=== PATIENT | female | born 1990 | race African-American/Black ===

== ENCOUNTER 2020-07-12 15:15 | Emergency (ER) | payer OTHER, MEDICAID ==
[~2020-07-12] VITALS: Ht 167.6 cm; Wt 77.3 kg
[~2020-07-12 15:15] MED LIST: NOCURR
[2020-07-12] MEDS ORDERED: HYDR-4031 PO (15:38)
[2020-07-12] MEDS ORDERED: MIRT-89 PO (15:38)
[2020-07-12 18:59] VITALS: BP 135/85
== END 2020-07-12 19:00 | disposition home or self-care (01) ==
LOC: EMS 15:20
DX: M25.531 Pain in right wrist (principal); M25.571 Pain in right ankle and joints of right foot; F41.9 Anxiety disorder, unspecified; Z90.89 Acquired absence of other organs
CPT/HCPCS: 71046; 71046-TC

== ENCOUNTER 2023-02-13 17:24 | Emergency (ER) | payer MEDICAID ==
[~2023-02-13 17:24] MED LIST changes: +HYDR-4808 PO; +MIRT-89 PO; -NOCURR
== END 2023-02-13 18:07 | disposition still patient (30) ==
LOC: EMS 17:25
DX: F41.9 Anxiety disorder, unspecified (principal); Z53.21 Procedure and treatment not carried out due to patient leaving prior to being seen by health care provider